=== PATIENT | female | born 1975 | race Caucasian/White ===

== ENCOUNTER 2016-06-10 01:19 | Emergency (ER) | payer BC ==
[~2016-06-10 01:19] MED LIST: ALORA1 EAC1 TD; CALAN SR180 MG PO; CLEOCIN150 MG PO; FLAGYL500 MG PO; JANUVIA100 MG PO; JARDIANCE10 MG PO; LEVAQUIN500 MG PO; LEXAPRO10 MG PO; LOPRESSOR50 MG PO; NEURONTIN600 MG PO; NICODERM 14MG PA1 EA TD; PANTOPRAZOLE SO40 MG PO; PERCOCET 10-321 EACH PO; PRAVACHOL20 MG PO; PRAVACHOL40 MG PO; TAMIFLU75 MG PO; TOPROL XL100 MG PO; ZESTRIL20 M1 PO; ZESTRIL40 MG PO; ZOFRAN4 MG PO; ZOLOFT100 MG PO
[2016-06-10 02:18] LABS: BASO % 0.4 % (0.1-1.2); EOS # 0.3 10_X3_uL (0.0-0.4); EOS % 2.6 % (0.7-5.8); GRAN # 5.4 10_X3_uL (1.6-6.1); GRAN % 52.2 % (34.0-71.1); HEMATOCRIT 37.4 % (34-45); HEMOGLOBIN 12.1 g/dL (11.2-15.7); LYMPH # 3.8 10_X3_uL (1.2-3.7); MEAN CORPUSCULAR HEMOGLOBIN 30.6 pg (27.0-33.0); MEAN CORPUSCULAR HGB CONC 32.4 g/dL (32.0-36.0); MEAN CORPUSCULAR VOLUME 94.7 fL (79-95); MEAN PLATELET VOLUME 10.4 fl (7.5-11.5); MONO # 0.8 10_X3_uL (0.2-0.9); MONO % 7.8 % (4.7-12.5); PLATELET COUNT 359 x10_3/uL (182-369); RED BLOOD COUNT 3.95 x10_6/uL (3.9-5.2); RED CELL DISTRIBUTION WIDTH 14.2 % (11.7-14.4); WHITE BLOOD COUNT 10.3 x10_3/uL (4.0-10.0)
[2016-06-10 02:34] LABS: ALKALINE PHOSPHATASE 82 U/L (50-136); ALT/SGPT 30 U/L (3.5-33.9); AST/SGOT 28 U/L (7.04-26.96); BILIRUBIN,TOTAL 0.32 mg/dL (0.0-1.0); BLOOD UREA NITROGEN 8 mg/dL (7-18); CALCIUM 9.2 mg/dL (8.7-10.7); CARBON DIOXIDE 32 mmol/L (21-32); CREATININE 0.6 mg/dL (0.6-1.3); GLUCOSE,RANDOM 125 mg/dL (70-99); POTASSIUM 4.1 mmol/L (3.5-5.1); SODIUM 139 mmol/L (136-145); TOTAL PROTEIN 6.9 gm/dL (6.4-8.2)
== END 2016-06-10 03:37 | disposition home or self-care (01) ==
LOC: ER 01:19
PROVIDERS: Emergency Medicine
DX: J06.9 Acute upper respiratory infection, unspecified (principal); R10.32 Left lower quadrant pain; F17.210 Nicotine dependence, cigarettes, uncomplicated
CPT/HCPCS: 36415; 80053; 85025; 87400; 99284-25